=== PATIENT | female | born 1980 ===

== ENCOUNTER 2017-11-30 10:14 | Outpatient (CLI) | payer OTHER | END 2017-11-30 10:17 | disposition home or self-care (01) | LOC: SONOGRAMA 10:14 | DX: E04.1 Nontoxic single thyroid nodule (principal) ==

== ENCOUNTER 2022-07-25 11:55 | Outpatient (CLI) | payer OTHER | END 2022-07-25 11:57 | disposition home or self-care (01) | LOC: SONOGRAMA 11:55 | PROVIDERS: ATTEND Pathology Anatomic Pathology | DX: C73 Malignant neoplasm of thyroid gland (principal) ==